=== PATIENT | female | born 1945 | race Caucasian/White ===

== ENCOUNTER → 2019-02-27 | Outpatient (CLI) | payer MEDICARE, OTHER ==
--- NOTE | 2019-02-27 14:07 | RAD ---
Chest radiograph 02/27/2019 12:00 AM INDICATION: Shortness of breath COMPARISON: None TECHNIQUE: Frontal and lateral views of the chest are provided. FINDINGS: The cardiomediastinal silhouette is within normal limits. There are no pleural effusions. There is no pulmonary vascular congestion. There is no pneumothorax. The lungs are clear. There is subsegmental atelectasis at the left lung base. No significant osseous abnormality is identified. IMPRESSION: No acute cardiopulmonary process. Electronically signed by: Brianne Francis MD (02/27/2019 2:04 PM) [id number]
== END | disposition home or self-care (01) ==
LOC: RAD 13:04
PROVIDERS: ATTEND Internal Medicine Critical Care Medicine
DX: J98.11 Atelectasis (principal)
CPT/HCPCS: 71046